=== PATIENT | male | born 1995 ===

== ENCOUNTER 2017-03-24 23:37 | Emergency (ER) | payer BC ==
[2017-03-25] MEDS ORDERED: Lidocaine 1% w/Epinephrine 1:200K 30 ML VIAL ONE (00:06)
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
== END 2017-03-25 01:50 | disposition home or self-care (01) ==
LOC: ERS 23:37
DX: S01.81XA Laceration without foreign body of other part of head, initial encounter (principal); S63.502A Unspecified sprain of left wrist, initial encounter; S63.501A Unspecified sprain of right wrist, initial encounter; V19.9XXA Pedal cyclist (driver) (passenger) injured in unspecified traffic accident, initial encounter
CPT/HCPCS: 12011